=== PATIENT | male | born 1955 | race Caucasian/White ===

== ENCOUNTER 2018-06-30 14:21 | Inpatient (IN) ==
[2018-06-30 17:04] LABS: Albumin Level 2.8 gm/dL (3.4-5.0); Albumin/Globulin Ratio 0.8 (1.1-1.8); Anion Gap 11.4 mEq/L (5-15); Bilirubin,Total 0.3 mg/dL (0.2-1.0); Calcium 8.2 mg/dL (8.5-10.1); Globulin 3.3 gm/dl (1.3-3.2); Potassium 3.4 mmoL/L (3.5-5.1); Total Protein,Serum 6.1 gm/dL (6.4-8.2)
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
[2018-06-30 17:14] LABS: Basophils % 0.2 % (0.1-2.0); Eosinophils # 0.6 K/mm3 (0.0-0.4); Eosinophils % 4.2 % (0.1-12.0); Hematocrit 33.7 % (42.0-52.0); Lymphocytes # 1.9 K/mm3 (0.7-4.5); Lymphocytes % 12.4 K/mm3 (10-50); Mean Corpuscular HGB Conc 32.6 g/dL (31.8-35.4); Mean Corpuscular Hemoglobin 29.9 pg (27.0-31.2); Mean Corpuscular Volume 91.7 fl (80-94); Mean Platelet Volume 7.6 fl (7.4-10.4); Monocytes # 0.6 K/mm3 (0.1-1.0); Neutrophils % 79.3 % (37.0-80.0); Platelet Count 269 K/mm3 (142-424); Red Blood Count 3.68 M/mm3 (4.60-6.20); Red Cell Distribution Width 15.7 % (11.5-17.5); White Blood Count 15.1 K/mm3 (4.8-10.8)
[2018-06-30 17:49] LABS: Eosinophils % 6 % (0-3); Lymphocytes % 19 % (10-50); Monocytes % 9 % (2-9); Neutrophils % 66 % (42-76); Total Cells Counted 100
[2018-06-30 17:50] LABS: RBC Morphology Normal
[2018-06-30 21:01] LABS: Microscopic, Urine URINE MICROSCOPIC (MICROSCOPIC)
[2018-06-30 21:11] LABS: Amphetamine/Metha Screen,Urine Negative ng/mL (<1000); Barbiturates Screen,Urine Negative ng/mL (<200); Benzodiazepines Screen,Urine Positive ng/mL (<200); Cannabinoid Screen,Urine Negative ng/mL (<50); Cocaine Screen,Urine Negative ng/mL (<300); Methadone Screen,Urine Negative ng/mL (<300); Opiate Screen,Urine Positive ng/mL (<300); Phencyclidine Screen,Urine Negative ng/mL (<25)
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
[2018-06-30 21:54] LABS: Appearance,Urine CLEAR (Clear); Bilirubin,Urine Negative (Negative); Blood, Urine 2+ (Negative); Color,Urine YELLOW (Yellow); Glucose,Urine (UA) Negative (Negative); Ketones,Urine Negative (Negative); Leukocyte Esterase,Urine 1+ (Negative); Protein,Urine TRACE (Negative)
[2018-06-30 22:12] LABS: Bacteria,Urine 1+ /lpf; Mucus,Urine Trace /lpf
[2018-07-01 06:01] LABS: Basophils % 0.3 % (0.1-2.0); Eosinophils # 0.4 K/mm3 (0.0-0.4); Eosinophils % 3.3 % (0.1-12.0); Hematocrit 36.6 % (42.0-52.0); Hemoglobin 11.3 g/dL (14.1-18.0); Lymphocytes # 2.1 K/mm3 (0.7-4.5); Lymphocytes % 15.7 K/mm3 (10-50); Mean Corpuscular HGB Conc 30.9 g/dL (31.8-35.4); Mean Corpuscular Hemoglobin 29.2 pg (27.0-31.2); Mean Corpuscular Volume 94.4 fl (80-94); Mean Platelet Volume 7.9 fl (7.4-10.4); Monocytes # 0.6 K/mm3 (0.1-1.0); Monocytes % 4.6 % (1.7-9.3); Neutrophils # 10.1 K/mm3 (1.8-7.8); Neutrophils % 76.2 % (37.0-80.0); Platelet Count 251 K/mm3 (142-424); Red Blood Count 3.88 M/mm3 (4.60-6.20); Red Cell Distribution Width 15.7 % (11.5-17.5); White Blood Count 13.2 K/mm3 (4.8-10.8)
[2018-07-01 06:17] LABS: Albumin Level 2.6 gm/dL (3.4-5.0); Albumin/Globulin Ratio 0.8 (1.1-1.8); Anion Gap 11.8 mEq/L (5-15); Bilirubin,Total 0.3 mg/dL (0.2-1.0); Calcium 8.1 mg/dL (8.5-10.1); Globulin 3.3 gm/dl (1.3-3.2); Potassium 3.8 mmoL/L (3.5-5.1); Total Protein,Serum 5.9 gm/dL (6.4-8.2)
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
[2018-07-02 07:04] LABS: Basophils % 0.2 % (0.1-2.0); Eosinophils # 0.2 K/mm3 (0.0-0.4); Hematocrit 35.2 % (42.0-52.0); Hemoglobin 11.5 g/dL (14.1-18.0); Lymphocytes # 1.9 K/mm3 (0.7-4.5); Lymphocytes % 16.7 K/mm3 (10-50); Mean Corpuscular HGB Conc 32.5 g/dL (31.8-35.4); Mean Corpuscular Hemoglobin 29.8 pg (27.0-31.2); Mean Corpuscular Volume 91.6 fl (80-94); Monocytes # 0.7 K/mm3 (0.1-1.0); Monocytes % 6.1 % (1.7-9.3); Neutrophils # 8.7 K/mm3 (1.8-7.8); Platelet Count 230 K/mm3 (142-424); Red Blood Count 3.84 M/mm3 (4.60-6.20); Red Cell Distribution Width 15.5 % (11.5-17.5); White Blood Count 11.6 K/mm3 (4.8-10.8)
[2018-07-02 07:13] LABS: Anion Gap 10.9 mEq/L (5-15); Calcium 8.1 mg/dL (8.5-10.1); Potassium 3.9 mmoL/L (3.5-5.1)
--- NOTE | 2018-07-02 09:53 | Progress Note ---
[facility] Anesthesia Checklist - Patient Identification Patient Identification: Arm Band, Verbal (Name & ) - Structural Data Admitted From: Inpatient Planned Operative Procedure/s: right hip hemiarthroplasty Consent for Planned Operative Procedure(s) Verified: Yes Verified Documents: Surgical Consent, History and Physical - NPO Status Verified Time NPO: 00:00 - Chart Verification Results Verified: CBC, BMP - Additional verifications Patient : No Anesthesia Reactions: No Hx Blood Transfusions: No Blood Transfusion Reaction: No Cephalosporin Allergy: No Previous Colonoscopy: Yes - Cardiovascular Assessment Heart Sounds: S1 & S2 Pulse Strength: Baseline Pulse Rhythm: Regular Peripheral Edema: No - Airway Assessment C-Spine Mobility Assessed: Yes TMJ Mobility Assessed: Yes Dentition: Edentulous - Neurological Assessment Level of Consciousness: Awake, Alert, Appropriate Hx Seizures: No Numbness or tingling in extremities: No - Anesthesia Plan Anesthesia Risk discussed: Yes Anesthesia Plan: Verified ASA Class: III Anesthesia Type: Spinal [facility] Anesthesia HX I have reviewed the patient's past medical history: Yes Medical History: Reports:: Chronic Obstructive Pulmonary Disease (COPD) ( Reports he has been told he has emphysema but does not take medication) Denies:: Diabetes Mellitus Type 1, Diabetes Mellitus Type 2 Other Surgeries: Yes: Other Amputation: No Fractures: No *Family Hx:: Cancer, Hyperlipidemia, Hypertension
--- NOTE | 2018-07-02 09:54 | Progress Note ---
[facility] Anesthesia Record Part I Intake, IV Amount: 1,200 Estimated blood loss (mL): 200 Urine output (mL): 0 Blood Products used (#): none Blood Pressure: 90/58 SaO2: 99 Pulse Rate: 64 Respiratory Rate: 18 Temperature: 97.6 F Patient is:: Drowsy, Stable Stable to PACU at:: 09:46
--- NOTE | 2018-07-02 09:54 | Progress Note ---
[facility] Anesthesia Record Part II Discharge Time: 10:16 Destination: Medical Surgical Department PACU nurse assessment reviewed?: Yes Patient Condition:: Good Anesthesia Complications:: None
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
--- NOTE | 2018-07-02 15:21 | Cardiology Report ---
PROCEDURE: 2-D M-mode and color Doppler study INDICATIONS FOR THE TEST: Chest pain COPDX Heart MurmurX Tobacco SmokingX Palpitations Fatigue Syncope Edema Hypertension Diabetes Mellitus Rheumatic Fever SOB PIERCE Obesity Hyperlipidemia Family History HD Additional History HIP FX LIMITED VIEW IN PSAX PATIENT INFORMATION HEIGHT: 66 WEIGHT:135 GENDER: Male B/P:122/79 2-D/M-MODE INTERPRETATION: 2-D MEASUREMENTS OBSERVED VALUES IN CMS Right Ventricular Dimension (RVDd) 1.7 Interventricular Septum (Thickness)(IVsd) .9 Left Ventricular Internal Dimensions(LVIDd) 5.3 Left Ventricular Posterior Wall (Thickness)(LVPWd) .9 Aortic Root 2.8 Aortic Cusp Separation 1.5 Left Atrial Dimensions (LAD) 2.6 2D 1. Left atrium is mildly enlarged, left ventricle is normal size, there is no concentric left ventricular hypertrophy, visually estimated ejection fraction 55% with no obvious regional wall motion abnormality. 2. The right atrium and right ventricle are normal size and contractility. 3. The aortic valve is thickened and calcified. 4. The mitral and tricuspid valve are grossly normal. 5. The pulmonic valve is poorly visualized. 6. No significant pericardial effusion noted. DOPPLER INTERROGATION: Doppler interrogation of the aortic, mitral and tricuspid valve reveals mean gradient of 9 mm across the aortic valve suggestive of mild aortic stenosis, there is no significant aortic insufficiency present, mild mitral and tricuspid regurgitation, tricuspid and jet velocity insufficient for calculation of the right ventricular systolic pressure. CONCLUSION: 1. Mildly enlarged left atrium, normal left ventricular size, visually estimated ejection fraction 55% with no obvious regional wall motion abnormality, diastolic parameters are inconclusive. 2. Thickened and calcified aortic valve, with mean gradient across valve of 9 mmHg, represents mild aortic stenosis, there is no aortic insufficiency. 3. Mild mitral and tricuspid regurgitation 4. No significant pericardial effusion noted.
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
[2018-07-03 07:10] LABS: Basophils % 0.2 % (0.1-2.0); Eosinophils # 0.4 K/mm3 (0.0-0.4); Hematocrit 33.1 % (42.0-52.0); Hemoglobin 10.8 g/dL (14.1-18.0); Lymphocytes % 13.7 K/mm3 (10-50); Mean Corpuscular HGB Conc 32.5 g/dL (31.8-35.4); Mean Corpuscular Hemoglobin 29.7 pg (27.0-31.2); Mean Corpuscular Volume 91.4 fl (80-94); Monocytes # 1.2 K/mm3 (0.1-1.0); Monocytes % 8.1 % (1.7-9.3); Platelet Count 245 K/mm3 (142-424); Red Blood Count 3.62 M/mm3 (4.60-6.20); Red Cell Distribution Width 15.3 % (11.5-17.5); White Blood Count 14.6 K/mm3 (4.8-10.8)
[2018-07-03 07:37] LABS: Albumin Level 2.1 gm/dL (3.4-5.0); Albumin/Globulin Ratio 0.8 (1.1-1.8); Bilirubin,Total 0.6 mg/dL (0.2-1.0); Calcium 7.7 mg/dL (8.5-10.1); Globulin 2.6 gm/dl (1.3-3.2); Total Protein,Serum 4.7 gm/dL (6.4-8.2)
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
[2018-07-05 06:55] LABS: Basophils % 0.3 % (0.1-2.0); Eosinophils # 0.4 K/mm3 (0.0-0.4); Eosinophils % 5.2 % (0.1-12.0); Hemoglobin 9.3 g/dL (14.1-18.0); Lymphocytes # 1.6 K/mm3 (0.7-4.5); Lymphocytes % 23.2 K/mm3 (10-50); Mean Corpuscular HGB Conc 32.3 g/dL (31.8-35.4); Mean Corpuscular Hemoglobin 29.5 pg (27.0-31.2); Mean Corpuscular Volume 91.4 fl (80-94); Mean Platelet Volume 8.1 fl (7.4-10.4); Monocytes % 14.2 % (1.7-9.3); Neutrophils % 57.1 % (37.0-80.0); Platelet Count 207 K/mm3 (142-424); Red Blood Count 3.14 M/mm3 (4.60-6.20); Red Cell Distribution Width 15.3 % (11.5-17.5); White Blood Count 7.1 K/mm3 (4.8-10.8)
[2018-07-05 07:13] LABS: Hematocrit 28.7 % (42.0-52.0)
[2018-07-05 07:20] LABS: Calcium 7.8 mg/dL (8.5-10.1)
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
[2018-07-06 06:00] LABS: Basophils % 0.2 % (0.1-2.0); Eosinophils # 0.5 K/mm3 (0.0-0.4); Eosinophils % 6.7 % (0.1-12.0); Hemoglobin 9.3 g/dL (14.1-18.0); Lymphocytes # 1.9 K/mm3 (0.7-4.5); Lymphocytes % 27.8 K/mm3 (10-50); Mean Corpuscular HGB Conc 35.2 g/dL (31.8-35.4); Mean Corpuscular Hemoglobin 32.1 pg (27.0-31.2); Mean Corpuscular Volume 91.2 fl (80-94); Mean Platelet Volume 8.1 fl (7.4-10.4); Monocytes # 0.6 K/mm3 (0.1-1.0); Monocytes % 9.1 % (1.7-9.3); Neutrophils # 3.9 K/mm3 (1.8-7.8); Neutrophils % 56.2 % (37.0-80.0); Platelet Count 254 K/mm3 (142-424); Red Blood Count 2.89 M/mm3 (4.60-6.20); Red Cell Distribution Width 15.3 % (11.5-17.5); White Blood Count 6.8 K/mm3 (4.8-10.8)
[2018-07-06 06:01] LABS: Hematocrit 26.3 % (42.0-52.0)
[2018-07-06 06:13] LABS: Anion Gap 5.8 mEq/L (5-15); Calcium 8.1 mg/dL (8.5-10.1); Potassium 3.8 mmoL/L (3.5-5.1)
[2018-07-06 07:47] VITALS: BP 120/63
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
== END 2018-07-06 09:47 ==
LOC: 2ND 14:21 → ER 14:21 → OBSVTOIN 20:53 → 2ND 20:54
PROVIDERS: ADMIT Internal Medicine Adolescent Medicine; ATTEND Internal Medicine Adolescent Medicine
DX: S72.041A Displaced fracture of base of neck of right femur, initial encounter for closed fracture; T74.11XA Adult physical abuse, confirmed, initial encounter; J18.9 Pneumonia, unspecified organism; J44.0 Chronic obstructive pulmonary disease with (acute) lower respiratory infection; Z87.828 Personal history of other (healed) physical injury and trauma; I34.0 Nonrheumatic mitral (valve) insufficiency; S22.31XA Fracture of one rib, right side, initial encounter for closed fracture; F20.9 Schizophrenia, unspecified; Z72.0 Tobacco use

== ENCOUNTER → 2018-09-07 15:19 | Outpatient (REF) | payer OTHER, SELFPAY ==
[2018-09-07 17:35] LABS: Microscopic, Urine URINE MICROSCOPIC (MICROSCOPIC)
[2018-09-07 18:57] LABS: Appearance,Urine CLOUDY (Clear); Blood, Urine Negative (Negative); Color,Urine DK YELLOW (Yellow); Glucose,Urine (UA) Negative (Negative); Ketones,Urine Negative (Negative); Leukocyte Esterase,Urine Negative (Negative); Nitrate,Urine Negative (Negative); Protein,Urine 1+ (Negative); Specific Gravity, Urine >= 1.030 (1.005-1.030)
[2018-09-07 19:00] LABS: Bilirubin,Urine Negative (Negative)
[2018-09-07 19:01] LABS: Amphetamine/Metha Screen,Urine Negative ng/mL (<1000); Barbiturates Screen,Urine Negative ng/mL (<200); Benzodiazepines Screen,Urine Negative ng/mL (<200); Cannabinoid Screen,Urine Negative ng/mL (<50); Cocaine Screen,Urine Negative ng/mL (<300); Methadone Screen,Urine Negative ng/mL (<300); Opiate Screen,Urine Negative ng/mL (<300); Phencyclidine Screen,Urine Negative ng/mL (<25)
[2018-09-07 19:17] LABS: Bacteria,Urine 4+ /lpf; RBC,Urine Occasional #/hpf (0-3); WBC,Urine Occasional #/hpf (0-3)
== END ==
LOC: LAB 15:19
PROVIDERS: Visit Provider Emergency Medicine
DX: Z79.899 Other long term (current) drug therapy (principal); N39.0 Urinary tract infection, site not specified
CPT/HCPCS: 80305; 81001; 87086

== ENCOUNTER → 2018-10-06 17:56 | Outpatient (CLI) | payer OTHER, SELFPAY ==
[2018-10-06 19:09] LABS: Basophils # 0.1 K/mm3 (0-0.2); Basophils % 0.4 % (0.1-2.0); Eosinophils # 0.3 K/mm3 (0.0-0.4); Eosinophils % 2.8 % (0.1-12.0); Hematocrit 43.7 % (42.0-52.0); Hemoglobin 13.8 g/dL (14.1-18.0); Lymphocytes # 3.2 K/mm3 (0.7-4.5); Lymphocytes % 27.2 % (10-50); Mean Corpuscular HGB Conc 31.5 g/dL (31.8-35.4); Mean Corpuscular Hemoglobin 28.7 pg (27.0-31.2); Mean Corpuscular Volume 91.1 fl (80-94); Mean Platelet Volume 7.7 fl (7.4-10.4); Monocytes # 0.9 K/mm3 (0.1-1.0); Monocytes % 7.3 % (1.7-9.3); Neutrophils # 7.2 K/mm3 (1.8-7.8); Neutrophils % 62.2 % (37.0-80.0); Platelet Count 385 K/mm3 (142-424); Red Cell Distribution Width 14.3 % (11.5-17.5); White Blood Count 11.6 K/mm3 (4.8-10.8)
== END ==
PROVIDERS: Visit Provider Emergency Medicine
DX: J44.9 Chronic obstructive pulmonary disease, unspecified (principal)
CPT/HCPCS: 85025

== ENCOUNTER → 2019-01-21 08:40 | Outpatient (CLI) | payer OTHER, SELFPAY ==
--- NOTE | 2019-01-21 08:51 | XR_ITS ---
XR hip RT 2-3V w/pelvis HISTORY: Follow-up right hip surgery ITS.REASON: SP hemiarthroplasty by Dr Estrada 07/02/18 ORDERING PHYSICIAN: Dilip Cm MD PATIENT AGE: 63 years COMPARISON: 09/27/2018 FINDINGS: Status post bipolar prosthesis placement of the right hip which does appear to be good alignment not significant change. No evidence of dislocation or other complication. IMPRESSION: Good alignment status post right hip prosthesis placement
== END ==
PROVIDERS: PCP Emergency Medicine; Visit Provider Orthopaedic Surgery
DX: M25.551 Pain in right hip (principal); Z48.89 Encounter for other specified surgical aftercare
CPT/HCPCS: 73502

== ENCOUNTER → 2019-08-10 13:38 | Outpatient (CLI) | payer MEDICARE, OTHER, SELFPAY ==
--- NOTE | 2019-08-10 13:44 | XR_ITS ---
PROCEDURE: XR HIP RT 2-3V W/PELVIS CLINICAL INDICATION: right hip pain; sp right hip hemiarthroplasty COMPARISON: HIPCMRT XR hip RT 2-3V w/pelvis from 01/21/2019 FINDINGS: Bipolar prosthesis is in place. There was good alignment without evidence of orthopedic complication. IMPRESSION: Good alignment right-sided bipolar prosthesis. No acute finding Dictated by: Ronnie Navarro MD 08/10/2019 14:51 Electronically signed by Ronnie Navarro MD in [place] 08/10/2019 14:51
== END ==
PROVIDERS: PCP Emergency Medicine; Visit Provider Orthopaedic Surgery
DX: Z96.641 Presence of right artificial hip joint (principal)
CPT/HCPCS: 73502

== ENCOUNTER → 2019-09-21 13:53 | Outpatient (CLI) | payer MEDICARE, OTHER, SELFPAY ==
--- NOTE | 2019-09-21 13:59 | XR_ITS ---
PROCEDURE: XR SHOULDER RT MIN 2V CLINICAL INDICATION: right shoulder pain COMPARISON: Shoulder R from 06/16/2019 FINDINGS: Prior shoulder surgery with the acromioclavicular osteotomy. Surgical anchors are present at the glenoid and at the humeral neck. There is mild subacromial stenosis. IMPRESSION: Postsurgical change. Subacromial stenosis. No change with no acute finding Dictated by: Ronnie Navarro MD 09/21/2019 17:09 Electronically signed by Ronnie Navarro MD in [place] 09/21/2019 17:09
--- NOTE | 2019-09-21 13:59 | XR_ITS ---
PROCEDURE: XR HIP RT 2-3V W/PELVIS CLINICAL INDICATION: sp RT hip hemiarthroplasty on 07/02/[address] Estrada Right hip pain COMPARISON: XR HIP RT 2-3V W/PELVIS from 08/10/2019 FINDINGS: Status post hemiarthroplasty with good alignment on the right. No fracture or dislocation. IMPRESSION: Status post right hemiarthroplasty with no acute finding Dictated by: Ronnie Navarro MD 09/21/2019 17:05 Electronically signed by Ronnie Navarro MD in [place] 09/21/2019 17:06
== END ==
PROVIDERS: PCP Emergency Medicine; Visit Provider Orthopaedic Surgery
DX: M25.511 Pain in right shoulder (principal); Z96.641 Presence of right artificial hip joint
CPT/HCPCS: 73030; 73502

== ENCOUNTER → 2019-10-01 14:17 | Outpatient (CLI) | payer MEDICARE, OTHER, SELFPAY | PROVIDERS: PCP Emergency Medicine; Visit Provider Orthopaedic Surgery | DX: M25.511 Pain in right shoulder (principal) ==

== ENCOUNTER → 2019-10-15 15:56 | Outpatient (CLI) | payer MEDICARE, OTHER, SELFPAY ==
--- NOTE | 2019-10-15 16:01 | XR_ITS ---
PROCEDURE: XR CHEST 2V CLINICAL HISTORY: cough Productive cough COMPARISON: CXR1VP XR chest portable from 06/30/[address] chest wo con from 06/30/2018 [id number] XR chest portable PICC plac from 07/03/2018 CXR2V XR chest 2V from 09/27/2018 FINDINGS: The cardiomediastinal silhouette and pulmonary vascularity are within normal limits. Changes of COPD with chronic coarsening of the bronchovascular markings. No lobar consolidation or collapse. Postsurgical changes right shoulder and clavicle. No acute bony abnormalities. IMPRESSION: COPD with chronic changes. No change with no acute finding Dictated by: Ronnie Navarro MD 10/15/2019 16:32 Electronically signed by Ronnie Navarro MD in [place] 10/15/2019 16:32
--- NOTE | 2019-10-15 16:01 | XR_ITS ---
PROCEDURE: XR LUMBAR SPINE 2-3V CLINICAL INDICATION: pain Low back pain COMPARISON: CT ABDOMEN PELVIS WO CON from 09/11/2019 FINDINGS: There are 4 non rib-bearing lumbar vertebra. There is mild wedging involving the L1 vertebral body. This is not significantly changed from a previous CT of the abdomen of 09/11/2019. minimal wedge contour also noted at L3 and L4 unchanged. There is degenerative disc disease of the lumbosacral junction. No acute fracture or dislocation. IMPRESSION: Chronic wedge deformities unchanged. Degenerative disc disease lumbosacral junction Dictated by: Ronnie Navarro MD 10/15/2019 16:28 Electronically signed by Ronnie Navarro MD in [place] 10/15/2019 16:28
--- NOTE | 2019-10-15 16:01 | XR_ITS ---
PROCEDURE: XR THORACIC SPINE 3V CLINICAL INDICATION: pain Back pain COMPARISON: CXR2V XR chest 2V from 09/27/2018 FINDINGS: Normal alignment. No acute fracture or dislocation. Mild multilevel degenerative disc disease with small anterior osteophytes. No lytic or blastic change. IMPRESSION: Thoracic spondylosis. No acute finding Dictated by: Ronnie Navarro MD 10/15/2019 16:26 Electronically signed by Ronnie Navarro MD in [place] 10/15/2019 16:26
== END ==
PROVIDERS: PCP Emergency Medicine; Visit Provider Nurse Practitioner Family
DX: R05 Cough; R06.02 Shortness of breath; M54.6 Pain in thoracic spine; M54.5 Low back pain
CPT/HCPCS: 71046; 72072; 72100

== ENCOUNTER → 2019-11-03 16:58 | Outpatient (CLI) | payer MEDICARE, OTHER, SELFPAY ==
[2019-11-03 18:40] LABS: Amphetamine/Metha Screen,Urine Positive ng/mL (<1000); Barbiturates Screen,Urine Negative ng/mL (<200); Benzodiazepines Screen,Urine Negative ng/mL (<200); Cannabinoid Screen,Urine Negative ng/mL (<50); Cocaine Screen,Urine Negative ng/mL (<300); Methadone Screen,Urine Negative ng/mL (<300); Opiate Screen,Urine Positive ng/mL (<300); Phencyclidine Screen,Urine Negative ng/mL (<25)
[2019-11-11 18:15] LABS: Amphetamines Negative (Cutoff=500)
== END ==
PROVIDERS: Nurse Practitioner Family; Visit Provider Emergency Medicine
DX: M51.36 Other intervertebral disc degeneration, lumbar region (principal); Z79.899 Other long term (current) drug therapy
CPT/HCPCS: 80305; 80324

== ENCOUNTER → 2019-12-07 17:01 | Outpatient (CLI) | payer MEDICARE, OTHER, SELFPAY ==
[2019-12-07 18:01] LABS: Amphetamine/Metha Screen,Urine Negative ng/mL (<1000); Barbiturates Screen,Urine Negative ng/mL (<200); Benzodiazepines Screen,Urine Negative ng/mL (<200); Cannabinoid Screen,Urine Negative ng/mL (<50); Cocaine Screen,Urine Negative ng/mL (<300); Methadone Screen,Urine Negative ng/mL (<300); Opiate Screen,Urine Negative ng/mL (<300); Phencyclidine Screen,Urine Negative ng/mL (<25)
== END ==
PROVIDERS: Visit Provider Emergency Medicine
DX: M51.36 Other intervertebral disc degeneration, lumbar region (principal)
CPT/HCPCS: 80305

== ENCOUNTER → 2020-01-12 17:15 | Outpatient (CLI) | payer MEDICARE, MEDICAID, SELFPAY ==
[2020-01-12 21:55] LABS: Amphetamine/Metha Screen,Urine Negative ng/ml (<1000); Barbiturates Screen,Urine Negative ng/ml (<200)
[2020-01-12 21:56] LABS: Benzodiazepines Screen,Urine Negative ng/ml (<200); Cannabinoid Screen,Urine Negative ng/ml (<50)
[2020-01-12 21:57] LABS: Cocaine Screen,Urine Negative ng/ml (<300)
[2020-01-12 21:58] LABS: Methadone Screen,Urine Negative ng/ml (<300); Opiate Screen,Urine Negative ng/ml (<300)
[2020-01-12 21:59] LABS: Phencyclidine Screen,Urine Negative ng/ml (<25)
[2020-01-20 06:38] LABS: Opiates Negative ng/mL (Cutoff=100)
== END ==
PROVIDERS: Visit Provider Nurse Practitioner Family
DX: Z79.899 Other long term (current) drug therapy (principal)
CPT/HCPCS: 80305; 80361; G0480

== ENCOUNTER → 2020-01-20 10:53 | Outpatient (CLI) | payer MEDICARE, MEDICAID, SELFPAY ==
--- NOTE | 2020-01-20 10:53 | MR_ITS ---
PROCEDURE: MR LUMBAR SPINE WO CON CLINICAL INDICATION: back pain Low back pain with bilateral low back pain and intermittent right leg pain and numbness and tingling. Prior surgery. COMPARISON: XR LUMBAR SPINE 2-3V from 10/15/2019 TECHNIQUE: Standard multiplanar multiecho sequences are performed without contrast. 3-D MIP and myelographic images are also rendered and reviewed FINDINGS: There is normal alignment. The spinal cord ends at the L1-L2 level. T12-L1: Mild degenerative disc disease. L1-L2: Minimal bulging disc. L2-L3: There is mild acute compressive changes involving the superior endplate of L3 with loss of height centrally of approximately 30 percent and loss of height anteriorly of approximately 20 percent. No retropulsion. There is minimal bulging disc at this level. L3-L4: Mild concentric bulging disc along with facet ligamentum hypertrophy. An annular fissure is present in the disc posteriorly. There is mild right lateral recess and foraminal narrowing and moderate left lateral recess and foraminal narrowing. The bulging disc is slightly eccentric toward the left and is abutting the left L4 nerve root. L4-5: Concentric bulging disc with a minimal broad-based central disc protrusion with facet ligamentum hypertrophy with canal stenosis and moderate moderate bilateral foraminal narrowing L5-S1: Degenerate disc disease. There is a broad-based central left paracentral disc protrusion. There is canal stenosis of 8 mm with severe left-sided foraminal and lateral recess narrowing and moderate right lateral recess narrowing and severe right-sided foraminal narrowing. Endplate osteophytes are present at this level as well. There does appear to be a laminotomy defect on the right at L5-S1 bilateral lateral recess and foraminal narrowing. At the region of the disc protrusion there is an area of isointense T1 and T2 signal which could represent some calcification within the disc protrusion or an osteophyte. IMPRESSION: 1. Mild acute/subacute wedge compression changes involving the superior endplate of L3 without retropulsion 2. L3-L4: Mild concentric bulging disc along with facet ligamentum hypertrophy. An annular fissure is present in the disc posteriorly. There is mild right lateral recess and foraminal narrowing and moderate left lateral recess and foraminal narrowing. The bulging disc is slightly eccentric toward the left and is abutting the left L4 nerve root. 3. L4-5: Concentric bulging disc with a minimal broad-based central disc protrusion with facet ligamentum hypertrophy with canal stenosis and moderate bilateral foraminal narrowing 4. L5-S1: Degenerate disc disease. There is a broad-based central left paracentral disc protrusion. There is canal stenosis of 8 mm with severe left-sided foraminal and lateral recess narrowing and moderate right lateral recess narrowing and severe right-sided foraminal narrowing. Endplate osteophytes are present at this level as well. There does appear to be a laminotomy defect on the right at L5-S1 bilateral lateral recess and foraminal narrowing. At the region of the disc protrusion there is an area of isointense T1 and T2 signal which could represent some calcification within the disc protrusion or an osteophyte. Dictated by: Ronnie Navarro MD 01/21/2020 13:49 Electronically signed by Ronnie Navarro MD in [place] 01/21/2020 13:49
== END ==
PROVIDERS: PCP Emergency Medicine; Visit Provider Emergency Medicine
DX: M51.36 Other intervertebral disc degeneration, lumbar region (principal); M54.5 Low back pain
CPT/HCPCS: 72148; 76376

== ENCOUNTER 2020-04-01 12:23 | Emergency (ER) | payer MEDICARE, MEDICAID, SELFPAY ==
[2020-04-01 12:24] VITALS: BP 122/77; PULSE 89; RESP 20; TEMP 36.9; O2SAT 95; BMI 25.8
--- NOTE | 2020-04-01 12:35 | ECG_ITS ---
APPROVED REPORT Exam: Resting ECG HR:89 bpm ECG Measurements Heart Rate 89 AXES ID 142 P 80 QRSd 78 QRS 66 QT 360 T 67 QTc 438 <Conclusion> Normal sinus rhythm Normal ECG Electronically signed by : Karlos Tolliver, 04/03/2020 14:11:17
--- NOTE | 2020-04-01 13:30 | XR_ITS ---
PROCEDURE: XR CHEST 2V CLINICAL HISTORY: SOB COMPARISON: . FINDINGS: Moderate emphysematous changes noted with hyperexpansion of the lung moseley and flattening of the hemidiaphragms. The lung moseley are free of infiltrate. Cardiac size is normal and there is no pleural fluid. IMPRESSION: Mild to moderate COPD, no acute chest pathology noted Dictated by: Dr. Giovanny Cantrell MD 04/01/2020 14:[address] Giovanny Cantrell MD in [place] 04/01/2020 14:20
--- NOTE | 2020-04-01 13:30 | PC.NURSE ---
Pt to rad.
[2020-04-01 13:32] LABS: Microscopic, Urine URINE MICROSCOPIC (MICROSCOPIC)
[2020-04-01 13:34] LABS: Chloride 94 mmol/L (98-107); Potassium 4.1 mmoL/L (3.5-5.1); Sodium 132 mmol/L (136-145)
--- NOTE | 2020-04-01 13:34 | PC.NURSE ---
pt to xray
[2020-04-01 13:36] LABS: Appearance,Urine CLEAR (Clear); Basophils # 0.1 K/mm3 (0-0.2); Basophils % 0.8 % (0.1-2.0); Bilirubin,Urine Negative (Negative); Blood, Urine Negative (Negative); Color,Urine YELLOW (Yellow); Eosinophils # 0.4 K/mm3 (0.0-0.4); Eosinophils % 3.3 % (0.1-12.0); Glucose,Urine (UA) Negative (Negative); Hemoglobin 12.3 g/dL (14.1-18.0); Ketones,Urine Negative (Negative); Leukocyte Esterase,Urine Negative (Negative); Lymphocytes # 2.2 K/mm3 (0.7-4.5); Lymphocytes % 18.7 % (10-50); Mean Corpuscular HGB Conc 35.1 g/dL (31.8-35.4); Mean Corpuscular Hemoglobin 33.9 pg (27.0-31.2); Mean Corpuscular Volume 96.7 fl (80-94); Mean Platelet Volume 8.6 fl (7.4-10.4); Monocytes # 1.1 K/mm3 (0.1-1.0); Monocytes % 8.8 % (1.7-9.3); Neutrophils # 8.2 K/mm3 (1.8-7.8); Neutrophils % 68.5 % (37.0-80.0); Nitrate,Urine Negative (Negative); Platelet Count 273 K/mm3 (142-424); Protein,Urine Negative (Negative); Red Blood Count 3.62 M/mm3 (4.60-6.20); Red Cell Distribution Width 14.2 % (11.5-17.5); Specific Gravity, Urine 1.025 (1.005-1.030); Urobilinogen,Urine 0.2 EU/dl (0.2)
[2020-04-01 13:37] LABS: Alanine Aminotransferase 51 U/L (12-78); Albumin Level 4.2 g/dl (3.5-5.0); Albumin/Globulin Ratio 1.4 (1.1-1.8); Alkaline Phosphatase 94 U/L (38-126); Anion Gap 10.1 mEq/L (5-15); Aspartate Amino Transferase 96 U/L (17-59); Bilirubin,Total 0.9 mg/dl (0.2-1.3); Blood Urea Nitrogen 9 mg/dl (9-20); Carbon Dioxide 32 mmol/L (22.0-30.0); Creatinine Clearance Estimated 70 mL/min (50-200); Estimated Glomerular Filt Rate 67 ml/min (>60); GFR (African American) 82 ML/MIN (>60); Globulin 2.9 g/dL (1.3-3.2); Glucose 115 mg/dl (74-100); Total Protein,Serum 7.1 g/dl (6.3-8.2)
--- NOTE | 2020-04-01 13:37 | PC.NURSE ---
PT returned from rad.
[2020-04-01 13:41] LABS: Squamous Epithelial Cell,Urine Occasional #/hpf (0-5)
[2020-04-01 13:43] LABS: Lactic Acid 0.9 mmol/L (0.7-2.1)
--- NOTE | 2020-04-01 14:31 | HMH.EDSOB ---
ED Disposition Clinical Impression: Bladder outlet obstruction, Tobacco use, COPD with chronic bronchitis Disposition: Home, Self-Care Condition on Discharge: Good Instructions: DI for Chronic Bronchitis Prescriptions: methylPREDNISolone [Medrol 4mg tab] 4 mg PO DIRECTED #21 tab Transmission Status: Pending to [facility] Nabumetone 750 mg PO 20 10 Days #10 tab Transmission Status: Pending to [facility] Referrals: John Betancourt MD [Primary Care Provider] - - Critical Care Critical Care Time: No Attestation: On 04/01/20, the high probability of a clinically significant, sudden or life threatening deterioration of the following system(s) required my full and direct attention, intervention and personal management. The time I documented below is in addition to time spent performing reported procedures but includes the following listed in this critical care notation. Medical Decision Making - Medical Records Medical records reviewed: Yes: I reviewed the patient's medical records. - Luan Inquiry Pt receiving controlled substance: No Vital Signs: 04/01/20 12:24 Temperature 98.5 F Temperature Source Oral Pulse Rate [Right Radial] 89 Respiratory Rate 20 Blood Pressure [Right Arm] 122/77 Blood Pressure Mean [Right Arm] 92 Blood Pressure Source [Right Arm] Automatic Cuff Blood Pressure Position [Right Arm] Sitting 02 Sat by Pulse Oximetry 95 Oxygen Delivery Method Room Air - Lab Data Lab results reviewed: Yes: I reviewed the patient's lab results. Lab Results 04/01/20 12:40: Urine Color Yellow, Urine Appearance Clear, Urine pH 6.0, Ur Specific [place] 1.025, Urine Protein Negative, Urine Glucose (UA) Negative, Urine Ketones Negative, Urine Blood Negative, Urine Nitrate Negative, Urine Bilirubin Negative, Urine Urobilinogen 0.2, Ur Leukocyte Esterase Negative, Urine RBC 3-5, Urine WBC 5-10, Ur Squamous Epith Cells Occasional, Urine Bacteria None 04/01/20 12:40: WBC 12.0 H, RBC 3.62 L, Hgb 12.3 L, Hct 35.0 L, MCV 96.7 H, MCH 33.9 H, MCHC 35.1, RDW 14.2, Plt Count 273, MPV 8.6, Neut % (Auto) 68.5, Lymph % (Auto) 18.7, [place] % (Auto) 8.8, Eos % (Auto) 3.3, Baso % (Auto) 0.8, Neut # (Auto) 8.2 H, Lymph # (Auto) 2.2, [place] # (Auto) 1.1 H, Eos # (Auto) 0.4, Baso # (Auto) 0.1 04/01/20 12:40: Sodium 132 L, Potassium 4.1, Chloride 94 L, Carbon Dioxide 32 H, Anion Gap 10.1, BUN 9, Creatinine 1.10, Estimated Creat Clear 70, Estimated GFR 67, Est GFR ( Amer) 82, Glucose 115 H, Calcium 9.0, Total Bilirubin 0.9, AST 96 H, ALT 51, Alkaline Phosphatase 94, Total Protein 7.1, Albumin 4.2, Globulin 2.9, Albumin/Globulin Ratio 1.4 04/01/20 12:40: Lactate 0.9 04/01/20 12:40: Influenza Type A Ag Negative, Influenza Type B Ag Negative Result diagrams: 04/01/20 12:40 04/01/20 12:40 Orders (Tests/Meds): ORDERS Category Date Time Status Blood Culture Stat Micro 04/01/20 12:40 Received - Radiology Data #1 Image(s): Chest Image Reviewed: Yes I reviewed the patient's radiology image w/the ED provider Preliminary Findings: Normal/NAD Resp/SOB HPI - General Chief Complaint: Shortness of Breath/Dyspnea Stated Complaint: SOA Trouble urinating Time Seen by Provider: 04/01/20 14:31 Mode of Arrival: Ambulatory Source of Information: Patient Limitations: No Limitations Description of Symptoms (Recalled from ER Triage Doc. by RN): pt c/o SOA for 2-3 months, pt reports SOA has been worse for approx x1 week. Pt reports has a chronic productive cough. Pt also reports intermittent chills and feeling hot - History of Present Illness 64-year-old male presents the ED with urinary hesitancy, shortness of breath but which is nothing new for him he is got chronic COPD. He also said he has some right sided chest pain. Patient states the chest pain is worsened with deep inhalations and coughing. He rates the pain 3 out of 10 classifies it as sharp. Exacerbating factors include increasing intrat
[2020-04-01 15:19] VITALS: BP 105/74; PULSE 90; RESP 20; TEMP 36.6; O2SAT 93
== END 2020-04-01 15:21 | disposition home or self-care (01) ==
PROVIDERS: Emergency Provider Family Medicine; PCP Emergency Medicine
DX: N32.0 Bladder-neck obstruction (principal); J44.0 Chronic obstructive pulmonary disease with (acute) lower respiratory infection; F17.210 Nicotine dependence, cigarettes, uncomplicated; Z90.49 Acquired absence of other specified parts of digestive tract
CPT/HCPCS: 71046; 80053; 81001; 83605; 85025; 87040; 87275; 87276; 93005; 96374; 96375; 99283; 99284; J2405

== ENCOUNTER → 2020-04-24 11:17 | Outpatient (POV) | payer MEDICARE, SELFPAY ==
[2020-04-24 11:58] VITALS: BP 134/77; PULSE 70; RESP 18; TEMP 36.6; O2SAT 99; BMI 25.8
--- NOTE | 2020-04-25 08:42 | HMH.PMCON ---
Assessment and Plan (1) Lumbar radiculopathy Current visit: Yes Status: Chronic Category: Medical Code(s): M54.16 - Radiculopathy, lumbar region (2) Degenerative disc disease at L5-S1 level Current visit: No Status: Chronic Category: Medical Code(s): M51.36 - Other intervertebral disc degeneration, lumbar region - Assessment and plan all Dx Assessment and Plan for all problems:: We will schedule L4-L5 lumbar epidural steroid injection for the patient. Given his symptomology I do believe that would be beneficial. Patient may benefit from a potential mild procedure or neurostimulator. He would not be a pump candidate due to his current ORT. Patient recently lost his son tragically. Patient is seeking psychological help in regards to this. Patient's been instructed to call the office if he has any issues prior to his next appointment. Dr. Frazier has reviewed this note and agrees with this plan of care. This note was dictated using voice recognition software and may contain errors or omissions HPI - Data of Consult Consult date: 04/24/20 Requesting Physician: Chantal Garcia APRN Primary Care Provider: John Betancourt MD - Consult Narrative Reason for consult: Pain, leg pain, right hip pain, right shoulder pain History of present illness: Mr. Biggs is a 64 year old male who presents today for consultation in regards to his low back and leg pain. He states all activity increases his pain while nothing decreases it. Patient utilizes a cane for stability. Patient has had right hip surgery in the past. He is also seen pain physician Dr. Twan Narayan. He has had injective therapy however he does not remember any relief his only memory is a severe headache. Patient is tried gabapentin and [place] in the past. He does have updated imaging showing severe degeneration along with disc bulges and canal stenosis. Patient rates his pain today a 7 out of 10. He has more pain with standing and walking. CC: Chantal Garcia APRN [facility] History I have reviewed the patient's past medical history: Yes Medical History: Reports:: Chronic Obstructive Pulmonary Disease (COPD), Hypertension, Renal Insufficiency Denies:: Cancer, Diabetes Mellitus Type 1, Diabetes Mellitus Type 2, MRSA, Seizures *Have you ever received a pneumonia vaccine?: Yes *Have you received a flu vaccine this season?: Yes Other Medical History: Reports: Arthritis. Denies: Blood Transfusion Reaction Laterality Cases: Right: Arthroscopy Shoulder, Total Hip Replacement Other Surgeries: Yes: Cholecystectomy, Colonoscopy, Other Amputation: No Fractures: Yes (HIP) - *Social History Smoking Status: Current every day smoker Tobacco Type: cigarettes # Packs/Day (cigarettes): 1 Alcohol Intake: never Substance Use Type: denies use *Occupational Status:: other Housing: house Household Members: other *Travel in the last 8 weeks: None Family Hx:: Unable to obtain Review of Systems - Review of Systems ROS General: no recent weight change, no fever, no sleep disturbances Respiratory: no cough, no shortness of air, no recurring pulmonary infections Cardiovascular/Peripheral Vascular: No chest pain, No palpitations, no edema, no shortness of breath. Gastrointestinal: no new onset incontinence, normal bowel movements reported Genitourinary: no new onset incontinence Musculoskeletal: Back pain, leg pain Psychiatric: normal mood/ affect Neurological: [denies new onset weakness in extremities], [denies new onset balance issues] Meds Home Medications Medication Instructions Recorded Confirmed Type bupropion HCl 75 mg tablet 75 mg PO BID #60 tab 10/07/19 03/03/20 Rx ipratropium 0.5 mg-albuterol 3 mg See Rx Instructions .ROUTE 12/14/19 03/03/20 Rx (2.5 mg base)/3 mL nebulization .COMPLEX #180 unspecified soln gabapentin 600 mg tablet 600 mg PO TID #90 tab 01/12/20 04/01/20 Rx indomethacin 25 mg capsule 25 mg PO BID #60 cap 01/12/20
== END ==
PROVIDERS: PCP Emergency Medicine; Visit Provider Clinical Nurse Specialist Family Health
DX: M51.16 Intervertebral disc disorders with radiculopathy, lumbar region (principal)
CPT/HCPCS: 99202